=== PATIENT | male | born 1965 | race Caucasian/White ===

== ENCOUNTER 2018-11-13 12:45 | Emergency (ER) | payer MEDICARE ==
[~2018-11-13] VITALS: Ht 177.8 cm; Wt 72.6 kg
[2018-11-13] MEDS ORDERED: ACETAMINOPHEN 325 MG TAB PO ONE (13:15)
--- NOTE | 2018-11-13 13:16 | NUR ---
Tylenol 975mg given for Fever.
[2018-11-13] MEDS ORDERED: CIPROFLOXACIN 500 MG TAB PO SCH (14:00)
[2018-11-13 14:26] VITALS: BP 110/87
== END 2018-11-13 14:15 | disposition home or self-care (01) ==
LOC: FSED 12:45
DX: R30.0 Dysuria (principal); N30.90 Cystitis, unspecified without hematuria
CPT/HCPCS: 81003; 87086; 87186; 99282

== ENCOUNTER → 2020-06-05 | Outpatient (CLI) | payer MEDICARE ==
--- NOTE | 2020-06-05 14:22 | Diagnostic Imaging Report ---
EXAMINATION: FOOT LEFT COMPLETE INDICATION: Left foot pain COMPARISON: None FINDINGS: AP, lateral and oblique images of the left foot demonstrate no acute fracture or dislocation. Alignment is anatomic. No substantial degenerative change. The soft tissues appear unremarkable. Tiny plantar calcaneal spur. IMPRESSION: No acute osseous injury of the left foot. Signed by: Alfonso David MD on 06/05/2020 2:19 PM
== END ==
LOC: RAD 13:51
DX: M79.672 Pain in left foot (principal)

== ENCOUNTER 2020-07-30 13:14 | Emergency (ER) | payer MEDICARE ==
[~2020-07-30] VITALS: Ht 177.8 cm; Wt 72.6 kg
[2020-07-30 14:45] LABS: BILIRUBIN,URINE NEGATIVE (NEGATIVE); CLARITY,URINE SL CLOUDY (CLEAR); COLOR,URINE YELLOW (YELLOW); KETONES,URINE NEGATIVE (NEGATIVE); LEUKOCYTE ESTERASE ,URINE NEGATIVE (NEGATIVE); NITRITE,URINE NEGATIVE (NEGATIVE); PROTEIN,URINE DIPSTICK NEGATIVE (NEGATIVE); URINE UROBILINOGEN 0.2 mg/dL (0.2 - 1)
--- OUTSIDE RECORDS SUMMARY | 2020-07-30 14:45 | XMS REPORT | Continuity of Care Document ---
Author Author [facility] t Organization [facility] Address [address] [place] [address] Phone Unavailable Care Team Providers Care Delivery Lead Name Role Phone NONSTAFF PCP Unavailable SHARYN SALMERON Attphys Unavailable PROVIDER, TEMP ED Attphys Unavailable Problems This patient has no known problems. Allergies, Adverse Reactions, Alerts This patient has no known allergies or adverse reactions. Medications This patient has no known medications. Procedures This patient has no known procedures. Encounters Start Date/Time End Date/Time Encounter Type [facility] Encounter ID Source 2020-07-09 10:20:00 2020-07-09 10:20:00 Outpatient [facility] [id number] [facility] 2018-11-13 12:45:00 2018-11-13 14:15:00 Departed Emergency Room [facility] [id number] [facility] Results Test Description Test Time Test Comments Results Result Comments Source FOOT LEFT COMPLETE 2020-06-05 14:18:00 [facility] [address] [place], [place] [address] Patient Name: YULIYA PARRA MR #: [id number] : 1965 Age/Sex: 54/M Req #: [id number] Adm Physician: Ordered by: SHARYN SALMERON MD Report #: [id number] Location: [facility] Room/Bed: Procedure: [id number] DX/FOOT LEFT COMPLETE Exam Date: 06/05/20 Exam Time: 1359 REPORT STATUS: Signed EXAMINATION: FOOT LEFT COMPLETE INDICATION: Left foot pain COMPARISON: None FINDINGS: AP, lateral and oblique images of the left foot demonstrate no acute fracture or dislocation. Alignment is anatomic. No substantial degenerative change. The soft tissues appear unremarkable. Tiny plantar calcaneal spur. IMPRESSION: No acute osseous injury of the left foot. Signed by: Wilma Elias MD on 06/05/2020 2:19 PM Dictated By: WILMA ELIAS MD 18 Transcribed By: JEFERSON on 06/05/201418 COPY TO: SHARYN SALMERON MD Chemistry 2017-05-12 12:34:00 Test Item Chemistry (test code = CKMBM-T) 1.3 ng/mL 0-6.6 N Chemistry (test code = TROPI-T) Less than 0.010 ng/mL < 0.028 Reference Range 0.00 - 0.028 ng/mL Negative 0.029 - 0.29 ng/mL Indeterminate Greater or Equal to 0.3 ng/mL Strongly suggests MN [id number] 12:33:00* Test Item Value Reference Range Interpretation Comments Chemistry (test code = NA-T) 138 mmol/L 136-145 N Chemistry (test code = K-T) 3.8 mmol/L 3.5-5.1 N Chemistry (test code = CL) 103 mmol/L 98-107 N Chemistry (test code = CO2) 24 mmol/L 22-29 N Chemistry (test code = ANGP) 15 mmol/L 10-20 N Chemistry (test code = BUN) 12 mg/dL 8.4-25.7 N Chemistry (test code = CREATT) 1.04 mg/dL 0.6-1.3 N Chemistry (test code = EGFRMDRD) 75 Reference Range for Estimated GFR: Greater than 90 mL/min/1.73 m2NOTE:The MDRD equation has not been validated for use with theelderly (over 70 years of age), women, patien tswith serious comorbid condition or persons with extremes ofbody size, muscle mass, or nutritional status. Chemistry (test code = GLU-T) 108 mg/dL 70-105 H Chemistry (test code = CA) 9.9 mg/dL 7.8-10.44 N Chemistry (test code = TBILI) 0.7 mg/dL 0.2-1.2 N Chemistry (test code = TP) 7.6 g/dL 6.0-8.3 N Chemistry (test code = ALB) 4.9 g/dL 3.5-5.0 N Chemistry (test code = GLOB) 2.7 g/dL 2.4-3.5 N Chemistry (test code = AG) 1.8 g/dL 1.2-2.2 N Chemistry (test code = ALP) 78 U/L 40-150 N Chemistry (test code = AST) 24 U/L 5-34 N Chemistry (test code = ALT) 37 U/L 8-55 N [id number] 12:33:00* Test Item Value Reference Range Interpretation Comments Chemistry (test code = CK) 65 U/L 30-200 N [id number] 12:33:00* Test Item Value Reference Range Interpretation Comments Chemistry (test code = LIP) 17 U/L 8-78 N [id number] 12:23:00* Test Item Value Reference Range Interpretation Comments Chemistry (test code = MG) 2.3 mg/dL 1.6-2.6 N [id number] 12:22:00* Test Item Value Reference Range Interpretation Comments Coagulation (test code = PT-T) 13.8 SEC 12.0-14.7 N Coagulation (test code = INR) 1.0 ATTENTION: READ CAREFULLY The recommended therapeutic ranges for oral anticoagulanttreatments are: Low Intensity: 1.5 - 2.0 Moderate Intensity: 2.0 - 3.0 High Intensity (1): 2.5 - 3.5 High Intensity (2): 3.0 - 4.0 CRITICAL: > 4.0 Anticoagulant? NONEMedical Necessity SUSPECT COAGULOPATHYAnticoagulant? NONEMedi mohsen Necessity: SUSP [id number] 12:22:00* Test Item Value Reference Range Interpretation Comments Coagulation (test code = PTT) 29.0 SEC 22.9-36.1 N Anticoagulant? NONEMedical Necessity SUSPECT COAGULOPATHYAnticoagulant? NONEMedi mohsen Necessity: SUSP [id number] 12:03:00* Test Item Value Reference Range Interpretation Comments Hematology (test code = WBCT) 7.9 thou/uL 4.8-10.8 N Hematology (test code = RBCT) 4.87 mill/uL 4.70-6.10 N Hematology (test code = HGBT) 15.6 g/dL 14.0-18.0 N Hematology (test code = HCTT) 45.0 % 42.0-52.0 N Hematology (test code = MCV) 92.6 fl 80.0-94.0 N Hematology (test code = MCH) 32.1 pg 27.0-31.0 H Hematology (test code = MCHC) 34.6 g/dL 32.0-36.0 N Hematology (test code = RDW) 11.4 % 11.5-14.5 L Hematology (test code = PLTT) 251 thou/uL 130-400 N Hematology (test code = MPV) 7.1 fL 7.4-10.4 L Hematology (test code = %NEUT) 75.6 % 42.0-75.0 H Hematology (test code = %LYMPH) 17.3 % 21.0-51.0 L Hematology (test code = %MONO) 6.5 % 0.0-10.0 N Hematology (test code = %EOS) 0.3 % 0.0-10.0 N Hematology (test code = %BASO) 0.3 % 0.0-1.0 N Hematology (test code = NEUT#) 6.0 thou/uL 1.40-6.50 N Hematology (test code = LYMPH#) 1.4 thou/uL 1.20-3.40 N Hematology (test code = MONO#) 0.5 thou/uL 0.11-0.59 N Hematology (test code = EOS#) 0.0 thou/uL 0.0-0.7 N Hematology (test code = BASO#) 0.0 thou/uL 0.0-0.2 N
[2020-07-30 14:53] LABS: BACTERIA,URINE RARE /HPF; RBC,URINE 0-5 /HPF (0-5)
[2020-07-30 14:54] LABS: BASOPHILS # (AUTO) 0.1 (0.0-0.1); BASOPHILS % 0.7 % (0.0-1.0); HEMATOCRIT 42.5 % (38.2-49.6); HEMOGLOBIN 14.8 g/dL (14.0-18.0); LYMPHOCYTES # (AUTO) 1.1 (1.0-3.2); LYMPHOCYTES % 14.8 % (18.0-39.1); MEAN CORPUSCULAR HEMOGLOBIN 31.3 pg (28-32); MEAN CORPUSCULAR HGB CONC 34.8 g/dL (31-35); MEAN CORPUSCULAR VOLUME 89.9 fL (81-99); MONOCYTES # (AUTO) 0.7 (0.2-0.8); MONOCYTES % 8.8 % (4.4-11.3); NEUTROPHILS # (AUTO) 5.8 (2.1-6.9); NEUTROPHILS % 75.4 % (38.7-80.0); PLATELET COUNT 284 x10e3/uL (140-360); RED BLOOD COUNT 4.73 x10e6/uL (4.3-5.7); RED CELL DISTRIBUTION WIDTH 12.5 % (11.7-14.4)
[2020-07-30 15:16] LABS: ALANINE AMINOTRANSFERASE 36 IU/L (0-55); ALBUMIN 5.1 g/dL (3.5-5.0); ALBUMIN/GLOBULIN RATIO 1.6 (0.8-2.0); ALKALINE PHOSPHATASE 91 IU/L (40-150); ANION GAP 13.9 mmol/L (8-16); BLOOD UREA NITROGEN 13 mg/dL (7-26); BUN/CREATININE RATIO 12 (6-25); CALCIUM 10.5 mg/dL (8.4-10.2); CARBON DIOXIDE 24 mmol/L (22-29); CHLORIDE 108 mmol/L (98-107); CREATINE KINASE 119 IU/L (30-200); CREATININE, SERUM 1.09 mg/dL (0.72-1.25); EST GLOMERULAR FILTRATION RATE > 60 ML/MIN (60-); GLUCOSE 98 mg/dL (74-118); POTASSIUM 3.9 mmol/L (3.5-5.1); SODIUM 142 mmol/L (136-145)
--- NOTE | 2020-07-30 15:33 | Diagnostic Imaging Report ---
Exam: Head CT without contrast History: Confusion Comparison studies: None Technique: Axial images were obtained from the skull base to the vertex. Coronal and sagittal images reconstructed from the axial data. Dose modulation, iterative reconstruction, and/or weight based adjustment of the mA/kV was utilized to reduce the radiation dose to as low as reasonably achievable. Radiation dose: Total DLP: 921.4 mGy*cm. Estimated effective dose: DLP x 0.015 Intravenous contrast: None Findings: Scalp: No abnormalities. Bones: No fracture or destructive lytic or blastic lesion. Brain sulci: Appropriate for age. Ventricles: Normal in size and configuration. No hydrocephalus. Extra-axial spaces: No masses, no fluid collection. Parenchyma: No abnormal densities. No masses, hemorrhage, acute or chronic vascular insults. Sellar/suprasellar region: No abnormalities. Craniocervical junction: Patent foramen magnum. No Chiari one malformation. Included paranasal sinuses: Clear. Middle ear cavities and mastoids: Clear. IMPRESSION: No acute abnormalities. Signed by: Dr. Rashid Gilbert M.D. on 07/30/2020 3:30 PM
--- NOTE | 2020-07-30 16:18 | Diagnostic Imaging Report ---
EXAMINATION: CHEST SINGLE (PORTABLE) INDICATION: Altered mental status COMPARISON: None FINDINGS: LINES/TUBES:Baclofen pump versus electrodes terminate at the level of T7. LUNGS:The lungs are well-inflated. No focal consolidation or pulmonary edema. PLEURA:No pleural effusion or pneumothorax. MEDIASTINUM:The cardiomediastinal silhouette appears normal in size and shape. BONES/SOFT TISSUES:No acute osseous injury. ABDOMEN:No free air under the diaphragm. IMPRESSION: No focal pneumonia or pulmonary edema. Signed by: Alfonso David MD on 07/30/2020 4:15 PM
--- NOTE | 2020-07-30 16:27 | Emergency Department Note ---
History of Present Illnes History of Present Illness Chief Complaint: General Medicine Complaints History of Present Illness This is a 55 year old male Chief Complaint Comment PATIENT IN FROM HOME WITH COMPLAINTS OF CONFUSION; PER SIGNIFICANT OTHER, PATIENT HAS BEEN DISORIENTED AND CONFUSED INTERMITTANTLY SINCE 11 PM LAST NIGHT; SHE STATES THAT HE HAS NOT SLEPT. PATIENT RECENTLY RAN OUT OF FENTANYL PATCHES SO HAS BEEN TAKING ADDITIONAL NORCO FOR PAIN. PATIENT ALSO HAS A SPINAL STIMULATOR. PATIENT APPEARS ALERT AND ORIENTED AT THIS TIME, BUT FAMILY STATES HE WAS TALKING TO PEOPLE THAT WERE NOT THERE ON THE WAY TO THE HOSPITAL. PATIENT DENIES ANY OTHER DRUG USE. . Historian: Patient, Family Member Arrival Mode: Car Onset (how long ago): day(s) (2) Location: WEAK Radiation: Denies non-radiation, Denies back, Denies neck, Denies extremity, Denies abdomen, Denies periumbilical, Denies flank, Denies proximal, Denies distal, Denies other Severity: mild Onset quality: gradual Duration (how long): day(s) (2) Timing of current episode: constant Progression: improving Chronicity: new Context: Denies recent illness, Denies recent surgery, Denies recent immobilization, Denies recent travel, Denies trauma/injury, Denies new medications, Denies hx of DVT/PE, Denies non-compliance w/ medications, Denies other Relieving factors: none Exacerbating factors: none Past Medical/Family History Physician Review I have reviewed the patient's past medical and family history. Any updates have been documented here. Past Medical History Recent Fever: No Clinical Suspicion of Infectio: No New/Unexplained Change in Ment: No Past Medical History: Hypertension, Chronic Back Pain Other Medical History: "Back Problems" "Hip Problems" Other Surgery: Lumbar Fusion "Hip Fusion" SPINAL STIMULATOR Social History Alcohol Use: Occasional Other Last Tetanus: UTD Review of Systems Review of Systems Constitutional: Reports no symptoms EENTM: Reports no symptoms Cardiovascular: Reports no symptoms Respiratory: Reports no symptoms Gastrointestinal: Reports no symptoms Genitourinary: Reports no symptoms Musculoskeletal: Reports no symptoms Integumentary: Reports no symptoms Neurological: Reports as per HPI Psychological: Reports no symptoms Endocrine: Reports no symptoms Hematological/Lymphatic: Reports no symptoms Physical Exam Related Data Allergies: Coded Allergies: No Known Allergies (Unverified , 11/13/18) Triage Vital Signs Vital Signs Date Time Temp Pulse Resp B/P (MAP) Pulse Ox O2 Delivery O2 Flow Rate FiO2 07/30/20 13:31 97.5 107 18 133/91 97 Room Air Vital signs reviewed: Yes Physical Exam CONSTITUTIONAL Constitutional: Present well-developed, Present well-nourished HENT HENT: Present normocephalic, Present atraumatic, Present oropharynx clear/moist, Present nose normal HENT L/R: Present left ext ear normal, Present right ext ear normal; Absent left TM normal, Absent right TM normal, Absent left canal normal, Absent right canal normal, Absent left impacted cerumen, Absent right impacted cerumen, Absent left bulging TM, Absent right bulging TM, Absent other EYES Eyes: Reports PERRL, Reports conjunctivae normal; Denies EOM normal, Denies lids normal, Denies left eye discharge, Denies right eye discharge, Denies scleral icterus, Denies other NECK Neck: Present ROM normal; Absent supple, Absent thyromegaly, Absent tracheal deviation, Absent stridor, Absent JVD, Absent cervical adenopathy, Absent carotid bruit, Absent other PULMONARY Pulmonary: Present effort normal, Present breath sounds normal; Absent respiratory distress, Absent rales, Absent rhonchi, Absent chest t enderness, Absent other CARDIOVASCULAR Cardiovascular: Present regular rhythm, Present heart sounds normal, Present capillary refill normal, Present normal rate; Absent irregular rhythm, Absent intact distal pulses, Absent tachycardia, Absent bradycardia, Absent murmur, Absent gallop, Absent friction rub, Absent palpable pulses, Absent strong pulses, Absent weak pulses, Absent LLE edema, Absent RLE edema, Absent other GASTROINTESTINAL Abdominal: Present soft, Present nontender, Present bowel sounds normal GENITOURINARY Genitourinary: Present exam deferred SKIN Skin: Present warm, Present dry MUSCULOSKELETAL Musculoskeletal: Present ROM normal NEUROLOGICAL Neurological: Present alert, Present oriented x 3, Present no gross motor or sensory deficits PSYCHOLOGICAL Psychological: Present mood/affect normal, Present judgement normal Results Laboratory Result Diagram: 07/30/20 1440 07/30/20 1440 Laboratory Laboratory Tests Test 07/30/20 14:40 07/30/20 13:40 White Blood Count 7.65 x10e3/uL (4.8-10.8) Red Blood Count 4.73 x10e6/uL (4.3-5.7) Hemoglobin 14.8 g/dL (14.0-18.0) Hematocrit 42.5 % (38.2-49.6) Mean Corpuscular Volume 89.9 fL (81-99) Mean Corpuscular Hemoglobin 31.3 pg (28-32) Mean Corpuscular Hemoglobin Concent 34.8 g/dL (31-35) Red Cell Distribution Width 12.5 % (11.7-14.4) Platelet Count 284 x10e3/uL (140-360) Neutrophils (%) (Auto) 75.4 % (38.7-80.0) Lymphocytes (%) (Auto) 14.8 % (18.0-39.1) Monocytes (%) (Auto) 8.8 % (4.4-11.3) Eosinophils (%) (Auto) 0.0 % (0.0-6.0) Basophils (%) (Auto) 0.7 % (0.0-1.0) Neutrophils # (Auto) 5.8 (2.1-6.9) Lymphocytes # (Auto) 1.1 (1.0-3.2) Monocytes # (Auto) 0.7 (0.2-0.8) Eosinophils # (Auto) 0.0 (0.0-0.4) Basophils # (Auto) 0.1 (0.0-0.1) Absolute Immature Granulocyte (auto 0.02 x10e3/uL (0-0.1) Sodium Level 142 mmol/L (136-145) Potassium Level 3.9 mmol/L (3.5-5.1) Chloride Level 108 mmol/L (98-107) Carbon Dioxide Level 24 mmol/L (22-29) Anion Gap 13.9 mmol/L (8-16) Blood Urea Nitrogen 13 mg/dL (7-26) Creatinine 1.09 mg/dL (0.72-1.25) Estimat Glomerular Filtration Rate > 60 ML/MIN (60-) BUN/Creatinine Ratio 12 (6-25) Glucose Level 98 mg/dL (74-118) Calcium Level 10.5 mg/dL (8.4-10.2) Total Bilirubin 0.7 mg/dL (0.2-1.2) Aspartate Amino Transf (AST/SGOT) 26 IU/L (5-34) Alanine Aminotransferase (ALT/SGPT) 36 IU/L (0-55) Alkaline Phosphatase 91 IU/L (40-150) Creatine Kinase 119 IU/L (30-200) Creatine Kinase MB 1.90 ng/mL (0-5.0) Troponin I 0.002 ng/mL (0-0.300) Total Protein 8.2 g/dL (6.5-8.1) Albumin 5.1 g/dL (3.5-5.0) Globulin 3.1 g/dL (2.3-3.5) Albumin/Globulin Ratio 1.6 (0.8-2.0) Urine Color Yellow (YELLOW) Urine Clarity Sl cloudy (CLEAR) Urine pH 6 (5 - 7) Urine Specific [place] 1.020 (1.010-1.025) Urine Protein Negative (NEGATIVE) Urine Glucose (UA) Negative (NEGATIVE) Urine Ketones Negative (NEGATIVE) Urine Blood Trace (NEGATIVE) Urine Nitrite Negative (NEGATIVE) Urine Bilirubin Negative (NEGATIVE) Urine Urobilinogen 0.2 mg/dL (0.2 - 1) Urine Leukocyte Esterase Negative (NEGATIVE) Urine RBC 0-5 /HPF (0-5) Urine WBC None /HPF (0-5) Urine Epithelial Cells None /LPF (NONE) Urine Bacteria Rare /HPF (NONE) Lab results reviewed: Yes Imaging Imaging results reviewed: Yes Assessment & Plan Medical Decision Making MDM TIA WEAKNESS Reassessment Reassessment time: 16:26 Reassessment BETTER A A O X3 Assessment & Plan Final Impression: (1) Weakness Depart Disposition: HOME, SELF-CARE Last Vital Signs Date Time Temp Pulse Resp B/P (MAP) Pulse Ox O2 Delivery O2 Flow Rate FiO2 07/30/20 13:31 97.5 107 18 133/91 97 Room Air TRISTIN MARTÍNEZ MD Jul 30, 2020 16:27
== END 2020-07-30 16:41 | disposition home or self-care (01) ==
LOC: ER 13:56
DX: R53.1 Weakness (principal); I10 Essential (primary) hypertension; M54.9 Dorsalgia, unspecified; G89.29 Other chronic pain
CPT/HCPCS: 36415; 70450; 71045; 80053; 81001; 82550; 82553; 84484; 85025; 99283

== ENCOUNTER → 2021-09-03 | Outpatient (CLI) | payer MEDICARE | LOC: US 16:43 | PROVIDERS: ATTEND Student in an Organized Health Care Education/Training Program | DX: R22.31 Localized swelling, mass and lump, right upper limb (principal) | CPT/HCPCS: 76882 ==

== ENCOUNTER 2022-05-03 14:00 | Emergency (ER) | payer MEDICARE ==
[~2022-05-03] VITALS: Ht 180.3 cm; Wt 74.8 kg
== END 2022-05-03 14:22 | disposition left against medical advice (07) ==
LOC: ER 14:21 → MERGE 14:21 → ER 14:22
DX: Z76.0 Encounter for issue of repeat prescription (principal); M54.50 Low back pain, unspecified; G89.29 Other chronic pain; I10 Essential (primary) hypertension
CPT/HCPCS: 99282

== ENCOUNTER → 2024-06-29 | Day surgery (SDC) | payer MEDICARE ==
[~2024-06-29] MED LIST: FENTANYL CITRATE/PF 100MCG/2 ML INJ ONE; LIDOCAINE HCL 2% LOCAL INJ 5 ML SDV VIAL INJ ONE; METOPROLOL SUCC25 MG PO; MICARDIS20 MG PO; PROPOFOL IV EMULSION 10 MG/ML 20 ML VIAL ONE; PROPOFOL IV EMULSION 50 ML IV ONE
[2024-06-29] MEDS: LACTATED RINGER'S 1,000 ML ONE (09:18)
[2024-06-29 12:24] VITALS: TEMP 97.5
[2024-06-29 12:55] VITALS: BP 130/90; PULSE 78; RESP 16; O2SAT 98
[2024-06-29 13:36] LABS: ALBUMIN 4.5 g/dL (3.5-5.0); BILIRUBIN,DIRECT 0.2 mg/dL (0.0-0.5); BILIRUBIN,TOTAL 0.5 mg/dL (0.2-1.2); TOTAL PROTEIN 7.7 g/dL (6.5-8.1)
== END | disposition home or self-care (01) ==
LOC: OR 08:41
PROVIDERS: ATTEND Internal Medicine Gastroenterology
DX: K29.70 Gastritis, unspecified, without bleeding (principal); D12.5 Benign neoplasm of sigmoid colon; K52.9 Noninfective gastroenteritis and colitis, unspecified; K26.9 Duodenal ulcer, unspecified as acute or chronic, without hemorrhage or perforation; Q40.8 Other specified congenital malformations of upper alimentary tract; K31.89 Other diseases of stomach and duodenum; K62.89 Other specified diseases of anus and rectum; K63.89 Other specified diseases of intestine; K64.8 Other hemorrhoids; I10 Essential (primary) hypertension; R00.0 Tachycardia, unspecified; Z79.899 Other long term (current) drug therapy; Z68.24 Body mass index [BMI] 24.0-24.9, adult
CPT/HCPCS: 36415; 43239; 45380; 45385; 80076; 93005; J2001; J2470; J2704 ×2; J3010; J7121; 45378

== ENCOUNTER → 2024-07-07 | Outpatient (REF) | payer MEDICARE ==
[~2024-07-07] MED LIST changes: -FENTANYL CITRATE/PF 100MCG/2 ML INJ ONE; -LIDOCAINE HCL 2% LOCAL INJ 5 ML SDV VIAL INJ ONE; -PROPOFOL IV EMULSION 10 MG/ML 20 ML VIAL ONE; -PROPOFOL IV EMULSION 50 ML IV ONE
== END ==
LOC: US 08:01
PROVIDERS: ATTEND Internal Medicine Gastroenterology
DX: I85.00 Esophageal varices without bleeding (principal)
CPT/HCPCS: 76705

== ENCOUNTER 2024-08-09 13:23 | Observation (INO) | payer MEDICARE ==
[~2024-08-09] VITALS: Ht 177.8 cm; Wt 81.6 kg
[2024-08-09] MEDS: SODIUM CHLORIDE 0.9% 1000ML 1,000 ML IV ONE ×2 (14:50→17:01)
[2024-08-09] MEDS: ACETAMINOPHEN 325 MG TAB PO ONE (15:57)
[2024-08-09] MEDS ORDERED: DIATRIZOATE MEGL/DIATRIZOA SOD 30 ML BTL PO ONE (16:56)
[2024-08-09] MEDS: ONDANSETRON HCL INJ 2MG/ML 2ML 2 MG/ML VIAL IV STA (16:58)
[2024-08-09] MEDS: Morphine 4mg INJECTION 4 MG/ML INJ IV ONE (16:59)
[2024-08-09 17:10] VITALS: TEMP 97.9
[2024-08-09 18:20] VITALS: PULSE 74; RESP 16
[2024-08-09] MEDS ORDERED: METHOCARBAMOL 750 MG TAB PO PRN (19:45)
[2024-08-09] MEDS ORDERED: MELATONIN 5 MG TABLET PO PRN (19:45)
[2024-08-09] MEDS ORDERED: ONDANSETRON HCL 4 MG ORAL DISINTEGRATING TAB PO PRN (19:45)
[2024-08-09] MEDS: LIDOCAINE 4% PATCH TP SCH (19:45)
[2024-08-09] MEDS ORDERED: FAMOTIDINE 20 MG TAB PO PRN (19:45)
[2024-08-09 20:00] VITALS: BP 146/104; PULSE 68; RESP 18; TEMP 98.4; O2SAT 97
[2024-08-09] MEDS: D5.45%NS/KCL 20MEQ 1,000 ML IV SCH (20:15)
[2024-08-09] MEDS: HYDROCODONE/APAP 5MG-325MG TAB PO PRN (20:16)
[2024-08-09] MEDS: ROPINIROLE HCL 0.25 MG TAB PO SCH (20:17)
[2024-08-09] MEDS: SENNA-S TABLET PO SCH (20:23)
[2024-08-09] MEDS: HYDRALAZINE HCL 20 MG/ML VIAL IV PRN (21:12)
[2024-08-09] MEDS: Morphine 2mg Syringe 2 MG/ML SYR IV PRN (22:21)
[2024-08-09] MEDS: SODIUM CHLORIDE 0.9% 1000ML 1,000 ML IV SCH (22:21)
[2024-08-09] MEDS: ONDANSETRON HCL INJ 2MG/ML 2ML 2 MG/ML VIAL IV PRN (22:22)
[2024-08-10] VITALS: BP 108/67; PULSE 72; RESP 18; TEMP 98.4; O2SAT 98
[2024-08-10] MEDS: ACETAMINOPHEN 325 MG TAB PO PRN (03:10)
[2024-08-10 04:00] VITALS: BP 102/73; PULSE 74; RESP 18; TEMP 98.1; O2SAT 97
[2024-08-10] MEDS ORDERED: D5.45%NS/KCL 20MEQ 1,000 ML IV SCH (04:00)
[2024-08-10 07:58] VITALS: BP 130/86; PULSE 82; RESP 16; TEMP 97.8; O2SAT 98
[2024-08-10] MEDS: HYDROCHLOROTHIAZIDE 25 MG TAB PO SCH (08:15)
[2024-08-10 08:32] LABS: BASOPHILS % 0.7 % (0.0-1.0); EOSINOPHILS % 0.5 % (0.0-6.0); HEMATOCRIT 45.3 % (38.2-49.6); HEMOGLOBIN 14.8 g/dL (14.0-18.0); LYMPHOCYTES # (AUTO) 1.2 (1.0-3.2); LYMPHOCYTES % 20.8 % (18.0-39.1); MEAN CORPUSCULAR HGB CONC 32.7 g/dL (31-35); MEAN CORPUSCULAR VOLUME 97.8 fL (81-99); MONOCYTES # (AUTO) 0.7 (0.2-0.8); MONOCYTES % 12.8 % (4.4-11.3); NEUTROPHILS # (AUTO) 3.7 (2.1-6.9); NEUTROPHILS % 64.7 % (38.7-80.0); PLATELET COUNT 222 x10e3/uL (140-360); RED BLOOD COUNT 4.63 x10e6/uL (4.3-5.7); RED CELL DISTRIBUTION WIDTH 12.7 % (11.7-14.4); WHITE BLOOD COUNT 5.71 x10e3/uL (4.8-10.8)
[2024-08-10 08:56] LABS: ANION GAP 17.4 mmol/L (8-16); CALCIUM 9.9 mg/dL (8.4-10.2); CREATININE, SERUM 1.33 mg/dL (0.72-1.25)
[2024-08-10 08:58] LABS: POTASSIUM 3.4 mmol/L (3.5-5.1)
[2024-08-10] MEDS: TELMISARTAN 40 MG TAB PO SCH (11:20)
[2024-08-10] MEDS: TAMSULOSIN HCL 0.4 MG CAP PO SCH (11:20)
[2024-08-10 11:45] VITALS: BP 127/90; PULSE 92; RESP 16; TEMP 97.8; O2SAT 100
[2024-08-10 12:34] VITALS: BP 132/95; PULSE 74; RESP 16; TEMP 98.1; O2SAT 98
[2024-08-10 16:00] VITALS: BP 126/98; PULSE 93; RESP 18; TEMP 97.8; O2SAT 99
== END 2024-08-10 18:47 | disposition home or self-care (01) ==
LOC: FSED 13:28 → ERHOLD 16:38 → MED/SURG3 18:49
PROVIDERS: ADMIT Family Medicine Adult Medicine; ATTEND Family Medicine Adult Medicine
DX: S39.012A Strain of muscle, fascia and tendon of lower back, initial encounter (principal); I86.1 Scrotal varices; N17.9 Acute kidney failure, unspecified; N50.811 Right testicular pain; R35.0 Frequency of micturition; I10 Essential (primary) hypertension; X50.0XXA Overexertion from strenuous movement or load, initial encounter; X50.9XXA Other and unspecified overexertion or strenuous movements or postures, initial encounter; E78.5 Hyperlipidemia, unspecified
CPT/HCPCS: 36415; 74176 ×2; 76870; 80048; 85025; 99284; G0378 ×2; J0360; J2270 ×3; J2405 ×2; J7030 ×2; Q9963